=== PATIENT | female | born 1955 | race Caucasian/White ===

== ENCOUNTER → 2023-03-19 | Outpatient (CLI) | payer OTHER, SELFPAY ==
--- NOTE | 2023-03-19 14:27 | NEURO_ITS ---
NCS and/or EMG Patient Report Ordering Doctor: Maximilian Pineda DATE OF SERVICE: 03/19/23 Carla presents for electrodiagnostic testing of the left upper limb. She reports intermittent numbness in the left hand. She had cervical spine surgery 3 weeks ago. Electrodiagnostic findings: Left median motor nerve demonstrates normal distal latency and amplitude with reduced conduction velocity. Normal left ulnar motor response. Prolonged left median sensory latency at the wrist. Normal ulnar and radial sensory responses. Normal left median and ulnar F-wave. On needle EMG, all muscles tested in the left upper limb showed no evidence of denervation with normal motor unit action potentials. Electrodiagnostic impression: This is an abnormal study in the left upper limb 1. Electrodiagnostic findings suggestive of left-sided median mononeuropathy. This is consistent with a mild left carpal tunnel syndrome. Multi Select Codes Neurology Neurology Interp Codes: 48917-76 Musc test done w/n test comp (interp) and 18740 -26 Nrv cndj test 7-8 studies (interp)
== END | disposition home or self-care (01) ==
PROVIDERS: PCP Family Medicine; Referring Provider Student in an Organized Health Care Education/Training Program; Visit Provider Student in an Organized Health Care Education/Training Program
DX: R20.2 Paresthesia of skin (principal)
CPT/HCPCS: 95886; 95910

== ENCOUNTER → 2023-10-27 | Outpatient (CLI) | payer BC, SELFPAY ==
--- NOTE | 2023-10-27 11:37 | BI_ITS ---
MAMMOGRAPHY - BILATERAL SCREENING REASON FOR EXAM: Female, 68 years old. Routine annual screening examination. PERTINENT HISTORY: Non-contributory. History of prior bilateral breast reduction surgery. TECHNIQUE: Digital bilateral breast salma (3D mammographic acquisition) in the CC and MLO projections. 2-D mediolateral oblique (MLO) and craniocaudad (CC) views of both breasts were obtained. CAD: Full Field Digital Mammography with Computer Added Detection was performed. COMPARISON: Comparison is made with prior examination March 22, 2022. FINDINGS: Breast Composition: The breasts are extremely dense, which lowers the sensitivity of mammography. There are no dominant masses or suspicious calcifications. A tissue clip marker is seen in the anterior midportion of the right breast. Dystrophic calcification is seen in the medial retroareolar region of the right breast No other significant abnormalities are identified. There has been no significant change since the prior study. BI/SCRN MAMM (CAD)W/SALMA BILAT IMPRESSION: Stable bilateral screening mammogram. Yearly follow-up mammogram recommended. (A) ASSESSMENT CATEGORY: BIRADS Category 2: Benign. A letter regarding these results will be sent to the patient by the facility within 30 days. Approximately 10% of breast cancers are not detected by mammography. A normal mammogram should not delay biopsy of a clinically suspicious abnormality. [id number] Electronically Signed: Jose Guzman MD at 13:10 EST ,
--- OUTSIDE RECORDS SUMMARY | 2023-10-27 11:58 | XMS RPT_ITS | CCD ---
Author Name Unknown Address [address] [place] [address] Organization [facility] Care Team Providers Care Box Office Manager Name Role Phone Mars Odonnell MD Primary Care Provider [phone] BELLE HAGAN, DR MARS Isabel Primary Care Physician BELLE HAGAN, DR MARS Isaebl Primary Care NAVARRO Madden DO Attending Unavailable NAVARRO AGUSTIN DO Attending Keely ODONNELL MD, DR MARS Isabel Primary Care NAVARRO Madden DO Admitting Unavailable GRISELDA DOMÍNGUEZ, STAN Maloney Consulting DR MARS Kebede MD Primary Care Roseline AMARALBLEFIELD SANG, MAYRA Gould Attending NAVARRO Escoto DO Referring Unavailable MARS ODONNELL Primary Care Unavailable ALEJANDRO GREEN Attending MARS Tam Primary Care Unavailable OVI RESENDIZ Attending Unavailable MARS ODONNELL Primary Care Unavailable Allergies Allergy Classification Reported Allergen(s) Allergy Type Date of Onset Reaction(s) Facility (2 sources) Penicillins; Translations: [PENICILLINS] Drug Allergy 01-09-2015 [facility] (1 source) Penicillin; Translations: [penicillin] Drug Allergy [facility] Medications Current Medications Medication Drug Class(es) Dates Sig (Normalized) Sig (Original) acetaminophen 325 mg / HYDROcodone bitartrate 5 mg oral tablet (1 source) Opioid Agonist Start: 02-26-2023 End: 03-05-2023 take 1 tablet by mouth every six hours as needed for pain Scotland 325- 5 mg oral tablet Dose = 1 tab(s), Oral, q6h, PRN for pain, X 7 day(s), # 28 tab(s), 0 Refill(s), Pharmacy: [id number], Cervical spondylosis, 165, cm, 02/26/23 6:44:00 EDT, Height, 77 Start Date: 02/26/23 Stop Date: 03/05/23 Status: Ordered Albuterol (Eqv-ProAir HFA) 90 mcg/inh inhalation aerosol (1 source) Start: 01-31-2023 take 2 puff(s) by mouth every four hours as needed Albuterol (Eqv-ProAir HFA) 90 mcg/inh inhalation aerosol INHALE 2 PUFFS BY MOUTH EVERY 4 HOURS NEEDED Start Date: 01/31/23 Status: Ordered amitriptyline hydrochloride 25 mg oral tablet (2 sources) Tricyclic Antidepressant Start: 01-31-2023 amitriptyline 25 mg oral tablet Dose : 25 mg = 1 tab(s), Oral, qHS, # 60 tab(s), 0 Refill(s) Start Date: 01/31/23 Status: Ordered Completed/Discontinued Medications Medication Drug Class(es) Dates Sig (Normalized) Sig (Original) [id number] 200 actuat albuterol 0.09 mg/actuat metered dose inhaler (1 source) beta2-Adrenergic Agonist take 2 puff(s) by inhalation every six hours as needed albuterol HFA (PROVENTIL HFA, VENTOLIN HFA) 90 mcg/actuation inhaler Inhale 2 Puffs as instructed every 6 hours as needed. 0 Active Problems Active Problems Problem Classification Problem Date Documented Da te Episodic/Chronic Asthma (1 source) Asthma; Translations: [Unspecified asthma, uncomplicated] Onset: 02-27-2023 Chronic Disorders of lipid metabolism (1 source) Hyperlipidemia; Translations: [Hyperlipidemia, unspecified] Onset: 02-27-2023 Chronic Essential hypertension (1 source) Essential hypertension; Translations: [Essential (primary) hypertension] Onset: 02-27-2023 Chronic Thyroid disorders (1 source) Hypothyroidism; Translations: [Hypothyroidism, unspecified] Onset: 02-27-2023 Chronic Past or Other Problems Problem Classification Problem Date Documented Date Episodic/Chronic Other connective tissue disease (1 source) Other symptoms and signs involving the musculoskeletal system; Translations: [Weakness of shoulder] Onset: 12-15-2022 Episodic Other nervous system disorders (1 source) Other acute postprocedural pain; Translations: [Post-op pain] Onset: 03-01-2023 Episodic Other non-traumatic joint disorders (1 source) Pain in left shoulder; Translations: [Left shoulder pain, unspecified chronicity] Onset: 12-15-2022 Episodic Other non-traumatic joint disorders (1 source) Joint disorder, unspecified; Translations: [Shoulder joint dysfunction] Onset: 12-15-2022 Episodic Spondylosis; intervertebral disc disorders; other back problems (1 source) Cervicalgia; Translations: [Neck pain] Onset: 03-01-2023 Episodic Syncope (1 source) Syncope; Translations: [Syncope and collapse] Onset: 05-30-2019 05-30-2019 Episodic Results Test Name Value Interpretation Reference Range Facil ity Vital Signs Date Time Vital Sign Value Performing Clinician Leland peng 02-27-2023 10:34-0400 Body temperature 98.24 [degF] NAVARRO AGUSTIN DO [facility] 02-27-2023 10:34-0400 Diastolic Blood Pressure Non-Invasive 79 1 NAVARRO AGUSTIN DO [facility] 02-27-2023 10:34-0400 Heart rate 70 /min NAVARRO AGUSTIN DO [facility] 02-27-2023 10:34-0400 Reason For Taking VItal Signs NAVARRO AGUSTIN DO [facility] 02-27-2023 10:34-0400 Respiratory rate 20 /min NAVARRO AGUSTIN DO [facility] 02-27-2023 10:34-0400 Systolic Blood Pressure Non-Invasive 120 1 NAVARRO AGUSTIN DO [facility] 02-27-2023 08:24-0400 Heart rate 82 /min NAVARRO AGUSTIN DO [facility] 02-27-2023 07:38-0400 Body temperature 98.78 [degF] NAVARRO AGUSTIN DO [facility] 02-27-2023 07:38-0400 Diastolic Blood Pressure Non-Invasive 71 1 NAVARRO AGUSTIN DO [facility] 02-27-2023 07:38-0400 Heart rate 74 /min NAVARRO AGUSTIN DO [facility] 02-27-2023 07:38-0400 Reason For Taking VItal Signs NAVARRO AGUSTIN DO [facility] 02-27-2023 07:38-0400 Respiratory rate 18 /min NAVARRO AGUSTIN DO [facility] 02-27-2023 07:38-0400 Systolic Blood Pressure Non-Invasive 106 1 NAVARRO AGUSTIN DO [facility] 02-27-2023 03:15-0400 Body temperature 98.24 [degF] NAVARRO AGUSTIN DO [facility] 02-27-2023 03:15-0400 Diastolic Blood Pressure Non-Invasive 71 1 NAVARRO AGUSTIN DO [facility] 02-27-2023 03:15-0400 Heart rate 88 /min NAVARRO AGUSTIN DO [facility] 02-27-2023 03:15-0400 Reason For Taking VItal Signs NAVARRO AGUSTIN DO [facility] 02-27-2023 03:15-0400 Respiratory rate 18 /min NAVARRO AGUSTIN DO [facility] 02-27-2023 03:15-0400 Systolic Blood Pressure Non-Invasive 123 1 NAVARRO AGUSTIN DO [facility] 02-26-2023 22:11-0400 Blood Pressure Location NAVARRO AGUSTIN DO [facility] 02-26-2023 22:11-0400 Blood Pressure Method NAVARRO AGUSTIN DO [facility] 02-26-2023 22:11-0400 Heart rate 85 /min NAVARRO AGUSTIN DO [facility] 02-26-2023 19:32-0400 Blood Pressure Location NAVARRO AGUSTIN DO [facility] 02-26-2023 19:32-0400 Blood Pressure Method NAVARRO AGUSTIN DO [facility] 02-26-2023 13:39-0400 Heart rate 67 /min NAVARRO AGUSTIN DO [facility] 02-26-2023 12:30-0400 Heart rate 68 /min NAVARRO AGUSTIN DO [facility] 02-26-2023 11:41-0400 Body height 165 cm NAVARRO AGUSTIN DO [facility] 02-26-2023 11:41-0400 Body weight 77 kg NAVARRO AGUSTIN DO [facility] 02-26-2023 11:41-0400 Body weight 28.28 kg/m2 NAVARRO AGUSTIN DO [facility] 02-26-2023 11:30-0400 Heart rate 67 /min NAVARRO AGUSTIN DO [facility] 02-26-2023 09:45-0400 Body temperature 97.16 [degF] NAVARRO AGUSTIN DO [facility] 02-26-2023 09:45-0400 Respiratory Rate - Anes 0 br/min NAVARRO AGUSTIN DO [facility] 02-26-2023 09:40-0400 Respiratory Rate - Anes 10 br/min NAVARRO AUGSTIN DO [facility] 02-26-2023 09:35-0400 Respiratory Rate - Anes 11 br/min NAVARRO AGUSTIN DO [facility] 02-26-2023 09:25-0400 Body temperature 96.49 [degF] NAVARRO AGUSTIN DO [facility] 02-26-2023 09:20-0400 Body temperature 96.39 [degF] NAVARRO AGUSTIN DO [facility] 02-26-2023 09:15-0400 Body temperature 96.26 [degF] NAVARRO AGUSTIN DO [facility] 02-26-2023 06:44-0400 Body height 165 cm NAVARRO AGUSTIN DO [facility] 02-26-2023 06:44-0400 Body temperature 96.98 [degF] NAVARRO AGUSTIN DO [facility] 02-26-2023 06:44-0400 Body weight 77 kg NAVARRO AGUSTIN DO [facility] Encounters Encounter Date Encounter Type Care Provider Facility Start: 07-03-2023 End: 07-04-2023 ambulatory MARS ODONNELL Facility:[facility] Start: 07-03-2023 Encounter for other preprocedural examination MARS ODONNELL [facility] Start: 03-01-2023 End: 03-01-2023 Emergency department patient visit OVI RESENDIZ Facility:[facility] Start: 02-26-2023 End: 02-27-2023 ambulatory NAVARRO AGUSTIN DO Facility:[facility] Start: 02-26-2023 End: 02-27-2023 Observation NAVARROPAGE AGUSTIN DO [facility] Start: 01-31-2023 End: 02-01-2023 ambulatory NAVARRO AGUSTIN DO Facility:[facility] Start: 01-31-2023 End: 02-01-[address] MARS ODONNELL MD Facility:[facility] Start: 12-15-2022 End: 12-15-2022 Emergency department patient visit ALEJANDRO GREEN Facility:[facility] Start: 03-22-2022 End: 03-22-2022 Subsequent hospital visit by physician Screen/Diagnostic Mammo [facility] Work Phone: Mammography Procedures Date Procedure Procedure Detail Performing Clinician Start: 02-26-2023 Osteotomy spine w/ds oliverio ant appr 1 vrt sgm crv NAVARRO AGUSTIN DO Plan of Treatment Date Care Activity Detail Author Start: 08-02-2024 DIABETES SCREEN DIABETES SCREEN [facility] Start: 05-16-2022 Influenza vaccination INFLUENZA (#1) [facility] Start: 09-15-2021 ADVANCE DIRECTIVE DISCUSSION ADVANCE DIRECTIVE DISCUSSION [facility] Start: 2020 BONE DENSITY BONE DENSITY [facility] Start: 2020 PNEUMOCOCCAL: 65+ (1 - PCV) PNEUMOCOCCAL: 65+ (1 - PCV) [facility] Start: 03-20-2020 LIPID SCREEN LIPID SCREEN [facility] Start: 09-16-2019 Mammography MAMMOGRAM [facility] Start: 2005 SHINGRIX VACCINE (1 of 2) SHINGRIX V ACCINE (1 of 2) [facility] Start: 2000 COLOGUARD (FIT-DNA) COLOGUARD (FIT-D NA) [facility] Start: 2000 Colonoscopy COLONOSCOPY [facility] Start: 2000 COLORECTAL CANCER SCREENING COLORECTAL CANCER SCREENING [facility] Start: [address] COLONOGRAPHY [facility] Start: 2000 FECAL OCCULT BLOOD FECAL OCCULT BLOO D [facility] Start: 2000 SIGMOIDOSCOPY SIGMOIDOSCOPY [facility] Start: 1974 Urine microalbumin profile DTAP,TDAP ,TD (1 - Tdap) [facility] Start: 1973 HEPATITIS C SCREENING HEPATITIS C SC NEFTALI [facility] Start: 1967 Adult depression scr eening assessment DEPRESSION SCREENING [facility] Start: 01-07-1956 COVID-19 VACCINE (#1) COVID-19 VACCI NE (#1) [facility] Immunizations Immunization Date Immunization Notes Care Provider Shine newman 08-06-2021 influenza virus vacc ine, unspecified formulation NAVARRO AGUSTIN DO [facility] 08-06-2021 tetanus toxoid, redu pauly diphtheria toxoid, and acellular pertussis vaccine, adsorbed NAVARRO AGUSTIN DO [facility] 08-08-2020 influenza virus vacc ine, unspecified formulation NAVARRO AGUSTIN DO [facility] 08-08-2020 pneumococcal polysaccharide vaccine, 23 valent NAVARROPAGE AGUSTIN DO [facility] 07-12-2019 influenza virus vacc ine, unspecified formulation NAVARRO AGUSTIN DO [facility] 06-21-2017 influenza virus vacc ine, unspecified formulation NAVARRO AGUSTIN DO [facility] 05-21-2016 pneumococcal polysaccharide vaccine, 23 valent NAVARORPAGE AGUSTIN DO [facility] Payers Date Payer Category Payer Private Health Insurance [id number] 2021 Private Health Insurance RAJIV OBRIEN [id number] 2021-Present [phone] [address] [place] [id number] Open Access [id number] 2021 Private Health Insurance [id number] 1955 Unknown [id number] 1955 Unknown [id number] 1955 Unknown [id number] Social History Date Type Detail Facility Start: 01-09-2015 End: 01-31-2023 Tobacco smoking status NHIS Never smoked tobacco [facility] Start: 01-09-2015 Tobacco use and exposure Smoke less tobacco non-user [facility] Start: 08-02-2021 Alcohol intake Current drinke r of alcohol (finding) [facility] Start: 01-09-2015 History SDOH Alcohol Comment occ [facility] Start: 1955 Sex Assigned At Not on file [facility] Start: 03-12-2022 End: 03-22-2022 Exposure to SARS-CoV-2 (event) Not sure [facility] Sex Assigned At Female [facility] Functional Status Date Assessment Result Facility 02-27-2023 Functional Status Door open, Room check performed [facility] 02-27-2023 Functional Status Multilevel home [facility] 02-27-2023 Functional Status Yes [facility] 02-27-2023 Functional Status bilateral knee high l [facility] 02-27-2023 Functional Status [facility] 02-26-2023 [facility] Functional Status Supervised [facility] 02-26-2023 Functional Status ice on [place] 02-26-2023 Functional Status [facility] 02-26-2023 Functional Status More than 8 hours [facility] Mental Status Date Assessment Result Facility 02-27-2023 Mental Status Oriented x 4 [facility] 02-27-2023 Mental Status [facility] 02-26-2023 Mental Status [facility] Hospital Discharge instructions 02-27-2023 Note Date & Type Note Facility 02-27-2023 Hospital Discharg e instructions Patient Education 02/27/2023 10:13:04 Anterior Cervical Diskectomy and Fusion, Care After Anterior Cervical Diskectomy and Fusion, Care After This sheet gives you information about how to care for yourself after your procedure. Your health care provider may also give you more specific instructions. If you have problems or questions, contact your health care provider. What can I expect after the procedure? After the procedure, it is common to have: Neck pain. Discomfort when swallowing. Slight hoarseness. Follow these instructions at home: If you have a neck brace: Wear it as told by your health care provider. Remove it only as told by your health care provider. Keep the brace clean and dry. Ask your health care provider if you should remove the brace to bathe or shower. Incision care Follow instructions from your health care provider about how to take care of your incision. Make sure you: ?Wash your hands with soap and water before and after you change your bandage (dressing). If soap and water are not available, use hand tafe registrar. ?Change your dressing as told by your health care provider. ?Leave stitches (sutures), skin glue, or adhesive strips in place. These skin closures may need to stay in place for 2 weeks or longer. If adhesive strip edges start to loosen and curl up, you may trim the loose edges. Do not remove adhesive strips completely unless your health care provider tells you to do that. Check your incision area every day for signs of infection. Check for: ?Redness, swelling, or pain. ?Fluid or blood. ?Warmth. ?Pus or a bad smell. Managing pain, stiffness, and swelling Take bazc-qau-aqwbyyx and prescription medicines only as told by your health care provider. If directed, put ice on the injured area. ?If you have a removable brace, remove it as told by your health care provider. ?Put ice in a plastic bag. ?Place a towel between your skin and the bag. ?Leave the ice on for 20 minutes, 2 3 times a day. Activity Return to your normal activities as told by your health care provider. Ask your health care provider what activities are safe for you. Do exercises as told by your health care provider. Do not take baths, swim, or use a hot tub until your health care provider approves. Do not lift anything that is heavier than 10 lb (4.5 kg), or the limit that you are told, until your health care provider says that it is safe. General instructions Ask your health care provider if the medicine prescribed to you: ?Requires you to avoid driving or using heavy machinery. ?Can cause constipation. You may need to take actions to prevent or treat constipation, such as: ?Drink enough fluid to keep your urine pale yellow. ?Take izak-kcb-hrvrmul or prescription medicines. ?Eat foods that are high in fiber, such as beans, whole grains, and fresh fruits and vegetables. ?Limit foods that are high in fat and processed sugars, such as fried and sweet foods. Do not use any products that contain nicotine or tobacco, such as cigarettes, e-cigarettes, and chewing tobacco. These can delay healing. If you need help quitting, ask your health care provider. Keep all follow-up visits and physical therapy appointments as told by your health care provider. This is important. Contact a health care provider if you have: A fever. Redness, swelling, or pain around your incision. Fluid or blood coming from your incision. Pus or a bad smell coming from your incision. Pain that is not controlled by your pain medicine. Increasing hoarseness or trouble swallowing. Get help right away if you have: Severe pain. Sudden numbness or weakness in your arms. Warmth, tenderness, or swelling in your calf. Chest pain. Difficulty breathing. Summary After the procedure, it is common to have neck pain, discomfort when swallowing, and slight hoarseness. Follow instructions from your health care provider about how to take care of your incision. Check your incision area every day for signs of infection. Return to your normal activities as told by your health care provider. Ask your health care provider what activities are safe for you. Contact a health care provider if you have signs of infection at your incision. This information is not intended to replace advice given to you by your health care provider. Make sure you discuss any questions you have with your health care provider. Document Released: 09/27/2016 Document Revised: 05/27/2019 Document Reviewed: 05/27/2019 [employer] Patient Education [email or web address]. Follow Up Care 01/22/2023 12:35:20 With:MARS ODONNELL MD Address: [address] [place] [phone] When: Unknown Comments:Please call your PCP after d/c to schedule a Follow up appt. With:NAVARRO AGUSTIN DO, Orthopedic Address: [address], [address] [facility] [place] [address]- [phone] When: Unknown [facility] Consult note 02-27-2023 Note Date & Type Note Facility 02-27-2023 Consult note Date of Service 02.27.23 Reason for Consultation medical management Referring Physician Dr. Agustin History of Present Illness This is a 67-year-old female with a past medical history of hypertension, hyperlipidemia, Choi's esophagus, asthma, hypothyroidism who presented to the hospital yesterday for an elective cervical discectomy and fusion. Patient reports she was having issues with left shoulder weakness and left arm weakness for several months. She denies ever having any issues with neck pain, numbness or tingling. She states she was being worked up by orthopedics for her shoulder issue when they told her that she had a cervical spine issue. Patient states overall she has been feeling well at home. She had no recent health issues. She currently denies any chest pain or shortness of breath. Denies nausea, vomiting or abdominal pain. Has been tolerating a diet, has a little bit of a sore throat but not having difficulty swallowing. Denies lightheadedness or dizziness. Surgical pain seems to be well controlled. Review of Systems Review of Systems: Reviewed in detail, including general health, HEENT, cardiovascular, respiratory, gastrointestinal, genitourinary, endocrine, musculoskeletal, neurologic, vascular, skin, and psychiatric. All are negative except for those listed in the History of Present Illness Physical Exam Vitals and Measurements T: 37.1 C (Oral) TMIN: 36.7 C (Oral) TMAX: 37.1 C (Oral) HR: 82(Apical) RR: 18 BP: 106/71 SpO2: 99% HT: 165 cm WT: 77 kg BMI: 28.28 Weight Dosing Weight: 77 kg (02/26/23) Dosing Weight: 77 kg (02/26/23) Vitals Signs(Last 24 hrs)__ Last Charted Minimum Maximum Temp 37.1(FEB 27 07:38) 36.8(FEB 27:15) 37.1(FEB 27 07:38) Heart Rate 82(FEB 27 08:24) 74(FEB 27 07:38) 85(FEB 26 21:00) Resp Rate 18(FEB 27 07:38) L 12(FEB 26 11:30) 18(FEB 27 03:15) SBP 106(FEB 27 07:38) 95(FEB 26 11:50) 123(FEB 27 03:15) DBP 71(FEB 27 07:38) C 50(FEB 26 11:50) 75(FEB 26 19:32) Physical Exam General: No acute distress. Alert and Appropriate Skin: No rash. Warm, Dry, anterior neck dressing HEENT: Head is normocephalic and atraumatic. No lesions. Pupils equal in size. Nose: No septal deviation. Mouth: Oropharynx mucosa is without lesion. Neck: Supple. No lymphadenopathy, thyromegaly noted. Lungs: Bilaterally clear breath sounds with no crepitation or wheeze. Cardiovascular: Heart is regular rhythm, S1S2, No extra-audible heart tones Abdomen: Abdomen is soft, nontender. Bowel sounds positive all four quadrants. No hepatosplenomegaly noted. Extremities: No clubbing, cyanosis or edema. Neurological: The patient is awake, oriented to person, place and time. Following simple commands, moving all extremities. DVT PROPHYLAXIS- scds Lab Results 02/27 05:36 WBC: 10.6 Hgb: 11.2 L Hct: 33.0 L Platelet: 239 Neutrophil %: 78.7 Glucose Level: 137 H Sodium Level: 135 L Potassium Level: 4.4 BUN: 10 Creatinine Lvl (s): 0.79 Assessment/Plan 1. Cervical spondylosis 2. HTN (hypertension) 3. HLD (hyperlipidemia) 4. Asthma 5. Hypothyroid Patient is s/p discectomy and fusion for cervical stenosis and DDD. Pain is controlled, she is awaiting PT eval. Still with left arm weakness. History of HTN, HLD, asthma, hypothyroid. Continue home medications, Blood pressures reviewed and stable. Patient is planning on discharging home, medically stable for discharge. Discussed with Dr. Bill Manzo Problem List/Past Medical History Ongoing No qualifying data Historical No qualifying data Procedure/Surgical History Osteotomy of spine, including discectomy, anterior approach, single vertebral segment; cervical: 02/26/23 Sliding osteotomy of chin with single piece implant Breast reduction Medications Inpatient amitriptyline, 25 mg= 1 tab(s), Oral, qHS atorvastatin, 10 mg= 1 tab(s), Oral, qDay Benadryl, 25 mg= 1 tab(s), Oral, q6h, PRN Benadryl, 25 mg= 0.5 mL, IV Push, q6h, PRN Colace, 100 mg= 1 cap(s), Oral, BID Fleet Enema, 133 mL, Rectal, qDay, PRN gabapentin, 100 mg= 1 cap(s), Oral, TID Metoprolol Tartrate 50 mg oral tablet, 50 mg= 1 tab(s), Oral, BID Milk of Magnesia, 30 mL, Oral, Daily morphine, 4 mg= 1 mL, IV Push, q4h, PRN [place] 325- 5 mg oral tablet, 1 tab(s), Oral, q4h, PRN Pepcid, 20 mg= 1 tab(s), Oral, qDay Senokot S, 2 tab(s), Oral, BID sucralfate, 1 gram(s)= 1 tab(s), Oral, Daily Synthroid, 100 mcg= 1 tab(s), Oral, qDay Transderm-Scop 1 mg/72 hr transdermal film, extended release, 1 patch(es), Transdermal, q72h, PRN Tylenol, 650 mg= 2 tab(s), Oral, q4h, PRN Tylenol, 650 mg= 2 tab(s), Oral, q4h, PRN Zofran, 4 mg= 2 mL, IV Push, q8h, PRN Home Albuterol (Eqv-ProAir HFA) 90 mcg/inh inhalation aerosol amitriptyline 25 mg oral tablet, 25 mg= 1 tab(s), Oral, qHS atorvastatin 10 mg oral tablet, 10 mg= 1 tab(s), Oral, qDay desvenlafaxine (as succinate) 50 mg oral tablet, extended release, 50 mg= 1 tab(s), Oral, Daily esomeprazole 40 mg oral delayed release capsule, 40 mg= 1 cap(s), Oral, qDay furosemide 40 mg oral tablet, 40 mg= 1 tab(s), Oral, Daily gabapentin 100 mg oral capsule, 100 mg= 1 cap(s), Oral, TID Metoprolol Tartrate 50 mg oral tablet, 50 mg= 1 tab(s), Oral, BID [place] 325- 5 mg oral tablet, 1 tab(s), Oral, q6h, PRN Saxenda 18 mg/3 mL subcutaneous solution sucralfate 1 g oral tablet Synthroid 50 mcg (0.05 mg) oral tablet, 100 mcg= 2 tab(s), Oral, qDay Allergies penicillin Social History Alcohol Use: Never., 01/31/2023 Substance Abuse Use: Never., 01/31/2023 Tobacco Nicotine Use: Never (less than 100 in lifetime)., 01/31/2023 Family History Malignant tumor of pancreas: Mother. Parkinson's disease: Father. Immunizations pneumococcal 23-valent vaccine(Pneumovax: 0.5 unknown unit (08/08/20) pneumococcal 23-valent vaccine(Pneumovax: 0 unknown unit (05/21/16) tetanus/diphth/pertuss (Tdap) adult/adol: 0.5 unknown unit (08/06/21) Digitally Signed by MAYRA BLACKMON on 02/27/2023 10:29 AM [facility] Clinical Note 02-27-2023 Note Date & Type Note Facility 02-27-2023 Note Discharge Instructions Thank you for allowing [facility] to assist you with your healthcare needs. The following is important discharge information regarding your hospital visit. Your Care Team Navarro Agustin DO [facility] Your Diagnosis Cervical spondylosis What to do next Instructions From Your Doctor Activity: Do not drive, smoke, operate machinery, return to work, or engage in activities that require you to be alert when taking narcotics, pain relievers or muscle relaxants No reaching overhead Do not turn your head from side to side, turn your upper body Wear both DANIEL hose continuously for 6 weeks Remove during shower time and replaced with a clean pair Wash with soap and water, then hang dry for next use No heavy lifting, pulling, or pushing more than 10 pounds for 3 months Must wear your cervical collar at all times Call Dr. Agustin office if: You have any difficulty breathing, swallowing, or swelling of your throat You have a sore throat that does not go away with ice chips, lozenges, pain meds etc. You fall at home, call immediately You experience numbness and/or tingling in your arms or legs that is changed or increased after discharge You develop chills, and/or fever greater than 100 degrees You have drainage from your incision, especially bloody or thick yellow You have increased redness or swelling around the incision You have severe or continued headaches, especially if no headaches were present in the hospital You start having increased pain that is not relieved by your medicine You run out of pain medication Care for your incision: Never put anything on your incision, no creams lotions or antibiotic ointment No hot tubs, swimming, or soaking in water for 6 weeks, or until your incision is healed To shower, cover your incision with a 4 x 4, Tegaderm dressing, and you must wear your cervical collar Change the dressing to your neck daily using a dry 4 x 4 and tape Wear your bone growth stimulator if given 1 daily as instructed If you need to shave using electric razor, do not tilt your head back or shave over the incision General reminders: Do not take any medications, herbal, prescription, or vxro-gru-wvildlq unless prescribed for the next 12 weeks Remember to take your pain medication and/or muscle relaxants as ordered to keep your pain under control No NSAIDs for 3 months, will interfere with the fusion. Swelling around the nerves can cause continued numbness and tingling for days or weeks after surgery Follow Up Appointments Follow Up with MARS ODONNELL MD When Why: Please call your PCP after d/c to schedule a Follow up appt. Where: [address] [id number] Follow Up with NAVARRO AGUSTIN DO, Orthopedic When Where: [facility] [address] [facility] [place] [phone] Allergies penicillin Medications Please ask your primary doctor or pharmacist before taking any other medication not listed, including over the counter drugs, herbal medications, vitamins and or supplements as they may interact with your home medications. What How Much When Why Instructions Last Dose Unchanged acetaminophen-hydrocodone ([place] 325- 5 mg oral tablet) 1 tab(s) by mouth Every 6 hours as needed for for pain Cervical spondylosis Duration: 7 Days Pickup at [facility] Unchanged albuterol (Albuterol (Eqv-ProAir HFA) 90 mcg/ inh inhalation aerosol) INHALE 2 PUFFS BY MOUTH EVERY 4 HOURS NEEDED Unchanged amitriptyline (amitriptyline 25 mg oral tablet) 1 tab(s) by mouth Daily at bedtime Unchanged atorvastatin (atorvastatin 10 mg oral tablet) 1 tab(s) by mouth Once a day Unchanged desvenlafaxine (desvenlafaxine (as succinate) 50 mg oral tablet, extended release) 1 tab(s) by mouth Every day Unchanged esomeprazole (esomeprazole 40 mg oral delayed release capsule) 1 cap by mouth Once a day Unchanged furosemide (furosemide 40 mg oral tablet) 1 tab(s) by mouth Every day Unchanged gabapentin (gabapentin 100 mg oral capsule) 1 cap by mouth Three (3) times a day Unchanged levothyroxine (Synthroid 50 mcg (0.05 mg) oral tablet) 2 tab(s) by mouth Once a day Unchanged liraglutide (Saxenda 18 mg/ 3 mL subcutaneous solution) INJECT ONE-HALF ml SUBCUTANEOUSLY DAILY Unchanged metoprolol (Metoprolol Tartrate 50 mg oral tablet) 1 tab(s) by mouth Two (2) times a day Unchanged sucralfate (sucralfate 1 g oral tablet) TAKE 1 TABLET BY MOUTH EVERY DAY Pharmacy Information [facility]: [address], [place] [phone] Please take this list to your next doctor s visit. Bring all medications you take, including over the counter medications, herbals and other supplements with you to your doctor s visit. Patients and families are reminded to discard old lists and to update any records with all medication providers or retail pharmacies. Medication Leaflets acetaminophen and hydrocodone (a SEET a MIN oh fen and nigel droe KOE done) Hycet, Lorcet, Scotland, Verdrocet, Vicodin, Xodol, Zamicet What is the most important information I should know about acetaminophen and hydrocodone? MISUSE OF OPIOID MEDICINE CAN CAUSE ADDICTION, OVERDOSE, OR . Keep the medication in a place where others cannot get to it. Taking opioid medicine during may cause life-threatening withdrawal symptoms in the . Fatal side effects can occur if you use opioid medicine with alcohol, or with other drugs that cause drowsiness or slow your breathing. Stop taking this medicine and call your doctor right away if you have skin redness or a rash that spreads and causes blistering and peeling. What is acetaminophen and hydrocodone? Acetaminophen and hydrocodone is a combination medicine used to relieve moderate to severe pain. Acetaminophen and hydrocodone contains an opioid medicine, and may be habit-forming. Acetaminophen and hydrocodone may also be used for purposes not listed in this medication guide. What should I discuss with my healthcare provider before taking acetaminophen and hydrocodone? You should not use this medicine if you are allergic to acetaminophen or hydrocodone, or if you have: severe asthma or breathing problems; or a blockage in your stomach or intestines. Tell your doctor if you have ever had: breathing problems, sleep apnea (breathing stops during sleep); liver disease; a drug or alcohol addiction; kidney disease; a head injury or seizures; urination problems; or problems with your thyroid, pancreas, or gallbladder. If you use opioid medicine while you are , your baby could become dependent on the drug. This can cause life-threatening withdrawal symptoms in the baby after it is born. Babies born dependent on opioids may need medical treatment for several weeks. Ask a doctor before using opioid medicine if you are . Tell your doctor if you notice severe drowsiness or slow breathing in the nursing baby. How should I take acetaminophen and hydrocodone? Follow all directions on your prescription label. Never take this medicine in larger amounts, or for longer than prescribed. An overdose can damage your liver or cause . Tell your doctor if you feel an increased urge to use more of this medicine. Never share this medicine with another person, especially someone with a history of drug abuse or addiction. MISUSE CAN CAUSE ADDICTION, OVERDOSE, OR . Keep the medicine in a place where others cannot get to it. Selling or giving away this medicine is against the law. Measure liquid medicine carefully. Use the dosing syringe provided, or use a medicine dose-measuring device (not a kitchen spoon). If you need surgery or medical tests, tell the doctor ahead of time that you are using this medicine. You should not stop using this medicine suddenly. Follow your doctor's instructions about tapering your dose. Store at room temperature away from moisture and heat. Keep track of your medicine. You should be aware if anyone is using it improperly or without a prescription. Do not keep leftover opioid medication. Just one dose can cause in someone using this medicine accidentally or improperly. Ask your pharmacist where to locate a drug take-back disposal program. If there is no take-back program, flush the unused medicine down the toilet. What happens if I miss a dose? Since this medicine is used for pain, you are not likely to miss a dose. Skip any missed dose if it is almost time for your next dose. Do not use two doses at one time. What happens if I overdose? Seek emergency medical attention or call the Poison Help line at . An overdose of this medicine can be fatal, especially in a child or other person using the medicine without a prescription. Overdose symptoms may include nausea, vomiting, sweating, severe drowsiness, pinpoint pupils, slow breathing, or no breathing. Your doctor may recommend you get naloxone (a medicine to reverse an opioid overdose) and keep it with you at all times. A person caring for you can give the naloxone if you stop breathing or don't wake up. Your caregiver must still get emergency medical help and may need to perform CPR (cardiopulmonary resuscitation) on you while waiting for help to arrive. Anyone can buy naloxone from a pharmacy or local health department. Make sure any person caring for you knows where you keep naloxone and how to use it. What should I avoid while taking acetaminophen and hydrocodone? Avoid driving or operating machinery until you know how this medicine will affect you. Dizziness or drowsiness can cause falls, accidents, or severe injuries. Do not drink alcohol. Dangerous side effects or could occur. Ask a doctor or pharmacist before using any other medicine that may contain acetaminophen (sometimes abbreviated as APAP). Taking certain medications together can lead to a fatal overdose. What are the possible side effects of acetaminophen and hydrocodone? Get emergency medical help if you have signs of an allergic reaction: hives; difficulty breathing; swelling of your face, lips, tongue, or throat. Opioid medicine can slow or stop your breathing, and may occur. A person caring for you should give naloxone and/or seek emergency medical attention if you have slow breathing with long pauses, blue colored lips, or if you are hard to wake up. In rare cases, acetaminophen may cause a severe skin reaction that can be fatal. This could occur even if you have taken acetaminophen in the past and had no reaction. Stop taking this medicine and call your doctor right away if you have skin redness or a rash that spreads and causes blistering and peeling. Call your doctor at once if you have: noisy breathing, sighing, shallow breathing, breathing that stops; a light-headed feeling, like you might pass out; liver problems--nausea, upper stomach pain, tiredness, loss of appetite, dark urine, carrie-colored stools, jaundice (yellowing of the skin or eyes); low cortisol levels-- nausea, vomiting, loss of appetite, dizziness, worsening tiredness or weakness; o high levels of serotonin in the body--agitation, hallucinations, fever, sweating, shivering, fast heart rate, muscle stiffness, twitching, loss of coordination, nausea, vomiting, diarrhea. Serious breathing problems may be more likely in older adults and in those who are debilitated or have wasting syndrome or chronic breathing disorders. Common side effects include: dizziness, drowsiness, feeling tired; nausea, vomiting, stomach pain; constipation; or headache. This is not a complete list of side effects and others may occur. Call your doctor for medical advice about side effects. You may report side effects to FDA at 8-645-RVY-6105. What other drugs will affect acetaminophen and hydrocodone? You may have breathing problems or withdrawal symptoms if you start or stop taking certain other medicines. Tell your doctor if you also use an antibiotic, antifungal medication, heart or blood pressure medication, seizure medication, or medicine to treat HIV or hepatitis C. Opioid medication can interact with many other drugs and cause dangerous side effects or . Be sure your doctor knows if you also use: cold or allergy medicines, bronchodilator asthma/COPD medication, or a diuretic ('water pill'); medicines for motion sickness, irritable bowel syndrome, or overactive bladder; other opioids--opioid pain medicine or prescription cough medicine; a sedative like Valium--diazepam, alprazolam, lorazepam, Xanax, Klonopin, Versed, and others; drugs that make you sleepy or slow your breathing--a sleeping pill, muscle relaxer, medicine to treat mood disorders or mental illness; drugs that affect serotonin levels in your body--a stimulant, or medicine for depression, Parkinson's disease, migraine headaches, serious infections, or nausea and vomiting. This list is not complete. Other drugs may affect acetaminophen and hydrocodone, including prescription and upwb-sgj-jxfthpe medicines, vitamins, and herbal products. Not all possible interactions are listed here. Where can I get more information? Your doctor or pharmacist can provide more information about acetaminophen and hydrocodone. Remember, keep this and all other medicines out of the reach of children, never share your medicines with others, and use this medication only for the indication prescribed. Every effort has been made to ensure that the information provided by [employer]. ('[employer]') is accurate, up-to-date, and complete, but no guarantee is made to that effect. Drug information contained herein may be time sensitive. [employer] information has been compiled for use by healthcare practitioners and consumers in the [place] and therefore [employer] does not warrant that uses outside of the [place] are appropriate, unless specifically indicated otherwise. [employer] drug information does not endorse drugs, diagnose patients or recommend therapy. [employer] drug information is an informational resource designed to assist licensed healthcare practitioners in caring for their patients and/or to serve consumers viewing this service as a supplement to, and not a substitute for, the expertise, skill, knowledge and judgment of healthcare practitioners. The absence of a warning for a given drug or drug combination in no way should be construed to indicate that the drug or drug combination is safe, effective or appropriate for any given patient. [employer] does not assume any responsibility for any aspect of healthcare administered with the aid of information [employer] provides. The information contained herein is not intended to cover all possible uses, directions, precautions, warnings, drug interactions, allergic reactions, or adverse effects. If you have questions about the drugs you are taking, check with your doctor, nurse or pharmacist. Copyright 5373-9882 [employer]. Version: 16.03. Revision Date: 10/17/2020. Education Materials Anterior Cervical Diskectomy and Fusion, Care After This sheet gives you information about how to care for yourself after your procedure. Your health care provider may also give you more specific instructions. If you have problems or questions, contact your health care provider. What can I expect after the procedure? After the procedure, it is common to have: Neck pain. Discomfort when swallowing. Slight hoarseness. Follow these instructions at home: If you have a neck brace: Wear it as told by your health care provider. Remove it only as told by your health care provider. Keep the brace clean and dry. Ask your health care provider if you should remove the brace to bathe or shower. Incision care Follow instructions from your health care provider about how to take care of your incision. Make sure you: ? Wash your hands with soap and water before and after you change your bandage (dressing). If soap and water are not available, use hand tafe registrar. ? Change your dressing as told by your health care provider. ? Leave stitches (sutures), skin glue, or adhesive strips in place. These skin closures may need to stay in place for 2 weeks or longer. If adhesive strip edges start to loosen and curl up, you may trim the loose edges. Do not remove adhesive strips completely unless your health care provider tells you to do that. Check your incision area every day for signs of infection. Check for: ? Redness, swelling, or pain. ? Fluid or blood. ? Warmth. ? Pus or a bad smell. Managing pain, stiffness, and swelling Take ruhz-uvf-isaavxy and prescription medicines only as told by your health care provider. If directed, put ice on the injured area. ? If you have a removable brace, remove it as told by your health care provider. ? Put ice in a plastic bag. ? Place a towel between your skin and the bag. ? Leave the ice on for 20 minutes, 2 3 times a day. Activity Return to your normal activities as told by your health care provider. Ask your health care provider what activities are safe for you. Do exercises as told by your health care provider. Do not take baths, swim, or use a hot tub until your health care provider approves. Do not lift anything that is heavier than 10 lb (4.5 kg), or the limit that you are told, until your health care provider says that it is safe. General instructions Ask your health care provider if the medicine prescribed to you: ? Requires you to avoid driving or using heavy machinery. ? Can cause constipation. You may need to take actions to prevent or treat constipation, such as: ? Drink enough fluid to keep your urine pale yellow. ? Take qjmm-vtj-cgnbwkk or prescription medicines. ? Eat foods that are high in fiber, such as beans, whole grains, and fresh fruits and vegetables. ? Limit foods that are high in fat and processed sugars, such as fried and sweet foods. Do not use any products that contain nicotine or tobacco, such as cigarettes, e-cigarettes, and chewing tobacco. These can delay healing. If you need help quitting, ask your health care provider. Keep all follow-up visits and physical therapy appointments as told by your health care provider. This is important. Contact a health care provider if you have: A fever. Redness, swelling, or pain around your incision. Fluid or blood coming from your incision. Pus or a bad smell coming from your incision. Pain that is not controlled by your pain medicine. Increasing hoarseness or trouble swallowing. Get help right away if you have: Severe pain. Sudden numbness or weakness in your arms. Warmth, tenderness, or swelling in your calf. Chest pain. Difficulty breathing. Summary After the procedure, it is common to have neck pain, discomfort when swallowing, and slight hoarseness. Follow instructions from your health care provider about how to take care of your incision. Check your incision area every day for signs of infection. Return to your normal activities as told by your health care provider. Ask your health care provider what activities are safe for you. Contact a health care provider if you have signs of infection at your incision. This information is not intended to replace advice given to you by your health care provider. Make sure you discuss any questions you have with your health care provider. Document Released: 09/27/2016 Document Revised: 05/27/2019 Document Reviewed: 05/27/2019 Elsevier Patient Education 2020 [employer] Additional Information VACCINATE! IT SAVES LIVES! Members of the community who have not yet received the COVID-19 vaccine and would like to receive it can visit one of [facility] vaccine clinics. There are many vaccine clinic locations within the [facility]. For locations and available times, please visit [email or web address] It is important to note that some COVID mobile vaccine clinics are held outdoors and may be canceled in rainy or stormy conditions. To learn more about pediatric vaccinations (ages 5-11), we invite you to visit the [facility] webpage. [email or web address]/[email or web address]-Frequently-[email or web address] -Questions.html To learn more about the COVID-19 vaccine, we invite you to visit the CDC website for a list of frequently asked questions.https://www.cdc.gov/coronavi sonal/2019-ncov/vaccines/faq.html [facility] Patient Portal Access Instructions: Stay connected with your healthcare team and access your personal medical information anytime with the [facility] Patient Portal. Please follow the directions below to create your [facility] account: 1.Access the email account you provided upon registration to the hospital/physician office.2.Look for an invitation email from [facility].3.Open the email and access the invitation link: Accept Invitation to [facility].4.Fill in the required braga to create your account. To access your account, visit [employer]. Click the blue button labeled Access Patient Portal and then log in with the username and password that you created in the steps above. You will be able to view your test results, lab results, a summary of your visits, upcoming appointments and more. There is also a convenient messaging option where you can send secure messages to your provider. In addition, you will have the ability to download any documents or summaries to your computer and/or send the information securely to a physician. Remember that your healthcare information is confidential, so carefully consider who you will allow to register on the [facility] Patient Portal for access to your information. You can also access the [facility] Patient Portal on the [employer] [email or web address]. Simply click on Patient Portal and then log into your account. If you would like to receive a full copy of your medical records, please contact the [facility] Medical Records Department by calling [phone], Friday through Friday between 8 a.m. and 4:30 p.m. HOW TO SAFELY DISPOSE OF PRESCRIPTION MEDICATIONS Please use one of the following methods to safely dispose of your unused medications. 1.Use a drug disposal kit: the drug disposal pouch allows you to safely discard your old and unused drugs. Ask your nurse to give you one when you are discharged.2.Visit a local take-back location: Many local pharmacies and police departments have programs that collect old and unwanted prescription drugs. Call your local pharmacy or go to http://[email or web address] to find one close to you.3.Make use of household items: Use cat litter or old coffee grounds to dispose medications if other options are not available. Mix your drugs with these household products, seal them in an airtight container and throw it into the garbage. Call [facility]: [phone] to be sure your drugs can be disposed of in this way. Some medicines may require a different approach.4.Never flush your medications down the toilet. IF YOU HAVE BEEN PRESCRIBED AN OPIOID FOR PAIN If you have been prescribed an opioid (such as hydrocodone, oxycodone or morphine), it is critical to understand the possible side effects and risks of opioid pain medications. Even when taken as directed, opioids can have several side effects including: Tolerance, meaning you might need to take more of a medication for the same pain relief. Nausea, vomiting and/or constipation. Sleepiness, dizziness, dry mouth, confusion, depression or itching. Physical dependence, meaning you have withdrawal symptoms when a medication is stopped, can develop within a few days. KNOW YOUR RESPONSIBILITIES It is important to know exactly how much and how often to take the opioid pain medications you are prescribed. Never take opioids in higher amounts or more often than prescribed. Do not combine opioids with alcohol or other drugs that cause drowsiness, such as benzodiazepines, also known as benzos, including diazepam and alprazolam, muscle relaxants or sleep aids. Never sell or share prescription opioids. This is illegal. Store opioids in a secure place and out of reach of others (including children, family, friends and visitors). The last page of this document has been signed and retained as a CHART COPY. Signatures Patient Education Materials Anterior Cervical Diskectomy and Fusion, Care After Medication Leaflets acetaminophen and hydrocodone My discharge plan and instructions have been reviewed and explained to me and YOSHI Ortiz JEANNIE L understand my current condition and have read and understand these discharge instructions. I have received a written copy of the plan/instructions. If I have questions, I am aware that I should contact my doctor. 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 [facility] Clinical Note 02-26-2023 Note Date & Type Note Facility 02-26-2023 Note ORIGINAL Images acquired, not reported on this accession number. [facility] Clinical Note 02-26-2023 Note Date & Type Note Facility 02-26-2023 Note Date of Service 02/26/2023 Chief Complaint Status post C5-6 ACDF Subjective The patient was seen and examined postoperatively. She is lying in bed resting comfortably. Her pain is controlled. She denies any acute numbness tingling or weakness Objective Vitals and Measurements T: 36.1 C (Temporal Artery) HR: 60(Apical) RR: 20 BP: 112/76 SpO2: 97% HT: 165 cm WT: 77 kg Intake and Output 7AM Yesterday to 7AM Today Intake and Output (Last 24 hours) Intake Output Total Summary Total Intake 0.00 Total Output 0.00 Fluid Balance 0.00 Physical Exam A&O, NAD NCAT, EOMI Regular rate and rhythm Clear to auscultation bilaterally Abdomen soft and nontender Neck soft and supple. Dressing clean dry and intact, cervical collar in place Extremities: Sensation and motor intact grossly without focal deficit. Pulses and reflexes are normal and symmetric Weight Dosing Weight: 77 kg (02/26/23) Medications Medications (3) Active Scheduled: (1) clindamycin PMX 600 mg 50 mL, IV Piggyback, PREOP pharm Continuous: (2) heparin 30,000 unit(s) + NS (0.9% nacl) 1,000 mL 1,000 mL, Miscellaneous NS (0.9% nacl) 1000 mL 1,000 mL, Intravenous, 125 mL/hr PRN: (0) Lab Results No 36 Hour Lab Data EKG No qualifying data available. Assessment/Plan Orders: clindamycin, Start: 02/26/23 6:00:00 EDT, Dose = 600 mg, = 50 mL, IV Piggyback, PREOP pharm, Rate: 100 mL/hr, Infuse over: 30 minute(s), 0 heparin 30,000 unit(s) + Sodium Chloride 0.9% intravenous solution 1,000 mL, Start: 02/26/23 6:00:00 EDT, As directed for cellsaver machine Sodium Chloride 0.9% intravenous solution 1000 mL, Start: 02/26/23 6:00:00 EDT, 18 hour(s), Stop date 03/01/23 5:59:00 EDT, Rate: 125 mL/hr Antiembolism Stocking Application Thigh High Communication Order (scheduled) IV Catheter Insertion/Care NPO Sequential Compression Device Application Sign Consent Surgical Shave Preparation Vital Signs Okay to admit to floor See orders Discharge planning, likely home tomorrow Digitally Signed by NAVARRO AGUSTIN DO on 02/27/2023 06:42 AM [facility] Anesthesiology Consult note 02-26-2023 Note Date & Type Note Facility 02-26-2023 Anesthesiology Consult note Patient: BRENDON BELLE Age: 67 years Sex: Female : 1955 Associated Diagnoses: None Author: 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 Family's history: negative. Health Status Allergies: Allergic Reactions (Selected) Severity Not Documented Penicillin- No reactions were documented., Allergies (1) ActiveReaction penicillinNone Documented Current medications: (Selected) Inpatient Medications Ordered Cleocin Phosphate: 600 mg, 50 mL, 100 mL/hr, IV Piggyback, PREOP pharm NS 1,000 mL: 125 mL/hr, Intravenous, Stop: 02/26/23 23:59:00 EDT heparin 30,000 unit(s) + NS 1,000 mL: As directed for cellsaver machine, Miscellaneous Documented Medications Documented Albuterol (Eqv-ProAir HFA) 90 mcg/inh inhalation aerosol: INHALE 2 PUFFS BY MOUTH EVERY 4 HOURS NEEDED Metoprolol Tartrate 50 mg oral tablet: 50 mg, 1 tab(s), Oral, BID, 180 tab(s), 0 Refill(s) Saxenda 18 mg/3 mL subcutaneous solution: INJECT ONE-HALF ml SUBCUTANEOUSLY DAILY Synthroid 50 mcg (0.05 mg) oral tablet: 100 mcg, 2 tab(s), Oral, qDay, 30 tab(s), 0 Refill(s) amitriptyline 25 mg oral tablet: 25 mg, 1 tab(s), Oral, qHS, 60 tab(s), 0 Refill(s) atorvastatin 10 mg oral tablet: 10 mg, 1 tab(s), Oral, qDay, 30 tab(s), 0 Refill(s) desvenlafaxine (as succinate) 50 mg oral tablet, extended release: 50 mg, 1 tab(s), Oral, Daily, 30 tab(s), 0 Refill(s) esomeprazole 40 mg oral delayed release capsule: 40 mg, 1 cap(s), Oral, qDay, 30 cap(s), 0 Refill(s) furosemide 40 mg oral tablet: 40 mg, 1 tab(s), Oral, Daily, 0 Refill(s) gabapentin 100 mg oral capsule: 100 mg, 1 cap(s), Oral, TID, 90 cap(s), 0 Refill(s) sucralfate 1 g oral tablet: TAKE 1 TABLET BY MOUTH EVERY DAY, Medications (3) Active Scheduled: (1) clindamycin PMX 600 mg 50 mL, IV Piggyback, PREOP pharm Continuous: (2) heparin 30,000 unit(s) + NS (0.9% nacl) 1,000 mL 1,000 mL, Miscellaneous NS (0.9% nacl) 1,000 mL 1,000 mL, Intravenous, 125 mL/hr PRN: (0) Problem list: Active Problems (7) Asthma Barretts esophagus GERD (gastroesophageal reflux disease) Heart murmur HTN (hypertension) Hypothyroidism Osteoarthritis Histories Past Medical History: No active or resolved past medical history items have been selected or recorded. Family History: Parkinson's disease Father Malignant tumor of pancreas Mother Procedure history: Sliding osteotomy of chin with single piece implant ([id number]). Breast reduction ([id number]). Social History Social & Psychosocial Habits Alcohol 01/31/2023 Use: Never Substance Abuse 01/31/2023 Use: Never Tobacco 01/31/2023 Tobacco Use: Never (less than 100 in l . Physical Examination Vital Signs 02/26/2023 6:44 EDT Temperature Temporal Artery 36.1 DegC Apical Heart Rate 60 bpm Respiratory Rate 20 br/min Systolic Blood Pressure Non-Invasive 112 mmHg Diastolic Blood Pressure Non-Invasive 76 mmHg Vital Signs(last 24 hrs) Last Charted Resp Rate 20 br/min (FEB 26 06:44) TLF384 mmHg (FEB 26 06:44) DBP76 mmHg (FEB 26 06:44) Measurements from flowsheet : Measurements 02/26/2023 6:44 EDT Height 165 cm Admission Weight 77 kg Weight Method Stated Fromberg Body Weight 56.91 kg General: Alert and oriented. Airway: Normal temporomandibular joint mobility. Mallampati classification: II (soft palate, fauces, uvula visible). Dentition Evaluation: Denies loose/chipped teeth. Respiratory: Lungs are clear to auscultation, Respirations are non-labored. Cardiovascular: Normal rate, Regular rhythm. Neurologic: Alert, Oriented. Review / Management Results review: No qualifying data available , Lab results 02/26/2023 6:44 EDT Designated Person #1 We May Share LYNN [phone] Designated Person #1 Relationship Spouse Privacy Restrictions Requested None Height 165 cm Admission Weight 77 kg Weight Method Stated Fromberg Body Weight 56.91 kg Temperature Temporal Artery 36.1 DegC Apical Heart Rate 60 bpm Respiratory Rate 20 br/min Systolic Blood Pressure Non-Invasive 112 mmHg Diastolic Blood Pressure Non-Invasive 76 mmHg Oxygen Saturation 97 % Status No, per patient Sensory Deficits None Sleep Apnea Snore No Sleep Apnea Tired No Sleep Apnea Obstruction No Sleep Apnea Pressure No Sleep Apnea BMI Yes Sleep Apnea Age Yes Sleep Apnea Neck No Sleep Apnea Gender No Sleep Apnea Score 2 High Risk for Sleep Apnea No Diagnosed With Sleep Apnea No Advanced Directives No - refuses information Infectious Disease Symptoms Patient states no symptoms, Cough Infectious Disease Recent Exposure No Alcohol and Drug Use No Employee of Institutional Living No Health Care Employee No History of Exposure to TB No History of Positive Chest X-Ray for TB No History of Positive TB Skin Test No Homeless No Known Immunosuppression No Recent Immigrant No Resident of Institutional Living No Bloody Sputum No Fatigue No Fever No Loss of Appetite No Night Sweats No Persistent Cough > 3 Weeks No Weight Loss No Safety Brochure Information Reviewed Yes [facility] Video Viewed No Barriers to Learning None evident Teaching Method Explanation, Printed materials Teaching Evaluation No further teaching needed Preferred Written Language Turkish Preferred Spoken Language Turkish Information Given by Patient Patient's Current Physicians DR MARS ODONNELL - PCP Discharge To, Anticipated Home with family care Prev Test Positive/Diagnosis w/COVID-19 No Current Quarantine/Isolated any Illness No Any Contact with Sick Animals/Birds No Traveled Anywhere in Last 30 Days Yes Travel Where Outside [place] State(s) Dustin Lost Weight Unintentionally Recently No Eat Poorly Due to Decreased Appetite No Total MST Score 0 No Personal Devices, Patient Valuables Glasses Anesthesia/Transfusions Prior anesthesia Admission Note-Nursing Same Day Patient History . Assessment and Plan [place] [employer]esthesiologists (ASA) physical status classification: Class III. Anesthetic Preoperative Plan Anesthetic technique: General. Maintenance airway: Oral endotracheal tube. Postoperative pain management: Per surgeon. Risks discussed: nausea, vomiting, sore throat, dental injury, hypotension, allergic reaction, serious complications. Informed consent: signed by patient. Digitally Signed by SYED GUO on 02/26/2023 07:00 AM [facility] History of Present illness Narrative 03-22-2022 Joselin Mathur, (R) - 03/22/2022 1:40 PM EDT Note Date & Type Note Facility 03-22-2022 History of Presen t illness Narrative Radiology Service Progress Note PATIENT NAME: Brendon Belle DATE OF SERVICE: March 22, 2022 TIME: 1:39 PM PATIENT IDENTITY VERIFICATION COMPLETED USING TWO (2) IDENTIFIERS: Name and Date of confirmed by patient verbally. FALL SCREENING: Has the patient had 2 falls in the last year or 1 fall with injury or currently using an Ambulatory Assistive Device (Walker, Cane, Wheelchair, Crutches, etc.)? No PATIENT GENDER DATA: Female. status: : No status: NO. PATIENT RELEVANT IMPLANT DATA REVIEWED: Not Applicable RADIOLOGY DEPARTMENT: Mammography PERIPHERAL IV DATA: Not applicable SIGNED BY: RT Sudarshan(R) March 22, 2022 1:39 PM documented in this encounter [facility] Evaluation + Plan note Note Date & Type Note Facility Evaluation + Plan note No data available for this section [facility] Summary Purpose Family History No Family History Records FoundNo Family History Records FoundNo Family History Records FoundNo Family History Records FoundNo Family History Records Found Advance Directives No Advanced Directives Records FoundDocuments on File Type Date Recorded 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 Advance Directive(s) 08/02/2021 3:08 PM Advance Directive(s) 05/30/2019 8:55 PM Advance Directive(s) 01/14/2017 10:17 PM Advance Directive(s) 11/14/2015 11:21 AM Additional Source Comments INFORMATION SOURCE (unrecogn ized section and content) DATE CREATED AUTHOR AUTHOR'S ORGANIZ ATION 03/26/2022 [facility] DATE CREATED AUTHOR AUTHOR'S ORGANIZ ATION 03/06/2023 [facility] ([place] DATE CREATED AUTHOR AUTHOR'S ORGANIZ ATION 07/05/2023 [facility] DATE CREATED AUTHOR AUTHOR'S ORGANIZ ATION 10/16/2023 [facility] Source Comments (unrecognize d section and content) In the event this informatio n is protected by the Federal Confidentiality of Alcohol and Drug Abuse Patient Records regulations: The Federal rules restrict any use of the information to criminally investigate or prosecute any alcohol or drug abuse patient.[facility] Care Teams (unrecognized sec tion and content) FOR RECORDS PERTAINING TO PATIENTS WHO ARE OR HAVE BEEN ENROLLED IN A CHEMICAL DEPENDENCY/SUBSTANCEABUSE PROGRAM, SOME INFORMATION MAY BE OMITTED. This clinical summary was aggregated from multiple sources. Caution should be exercised in using it in the provision of clinical care. This summary normalizes information from multiple sources, and as a consequence, information in this document may materially change the coding, format and clinical context of patient data. In addition, data may be omitted in some cases. CLINICAL DECISIONS SHOULD BE BASED ON THE PRIMARY CLINICAL RECORDS. [facility]. provides no warranty or guarantee of the accuracy or completeness of information in this document.
== END | disposition home or self-care (01) ==
LOC: OPBI 11:35
PROVIDERS: PCP Family Medicine; Referring Provider Physician Assistant; Visit Provider Physician Assistant
DX: Z12.31 Encounter for screening mammogram for malignant neoplasm of breast (principal)
CPT/HCPCS: 77063; 77067